=== PATIENT | female | born 1995 | race Caucasian/White ===

== ENCOUNTER 2019-05-05 03:06 | Emergency (ER) | payer MEDICAID ==
[~2019-05-05] VITALS: Ht 160 cm; Wt 72.0 kg
[2019-05-05] MEDS ORDERED: ACETAMINOPHEN 325MG TABLET PO ONE (04:15)
[2019-05-05 04:32] LABS: BASOPHILS % 0.5 % (0.0-2.0); EOSINOPHILS % 0.3 % (0.0-5.0); HEMATOCRIT. 34.2 % (36.0-48.0); HEMOGLOBIN. 11.5 g/dL (12.0-16.0); LYMPHOCYTES % 35.4 % (20.0-50.0); MEAN CORPUSCULAR VOLUME 88.8 fL (81.0-99.0); MEAN PLATELET VOLUME 10.6 fl (7.4-10.4); MONOCYTES % 6.6 % (2.0-8.0); NEUTROPHILS % 57.2 % (40.0-76.0); PLATELET 188 x1000/uL (130-400); RED BLOOD CELL COUNT 3.85 mill/uL (4.2-5.4); RED CELL DISTRIBUTION WIDTH 13.1 % (11.6-14.6)
[2019-05-05 04:38] LABS: CHLORIDE 108 mEq/L (98-107)
[2019-05-05 04:42] LABS: ETHANOL BLOOD < 10 mg/dL
[2019-05-05 04:49] LABS: B-HCG QUANTITATIVE < 1 mIU/mL (<3)
[2019-05-05 05:00] VITALS: BP 93/52
== END 2019-05-05 06:24 | disposition home or self-care (01) ==
LOC: ER 03:06
DX: S93.492A Sprain of other ligament of left ankle, initial encounter (principal); S00.81XA Abrasion of other part of head, initial encounter; R45.851 Suicidal ideations; F29 Unspecified psychosis not due to a substance or known physiological condition; J45.909 Unspecified asthma, uncomplicated; M21.371 Foot drop, right foot; Z88.6 Allergy status to analgesic agent; W01.0XXA Fall on same level from slipping, tripping and stumbling without subsequent striking against object, initial encounter; Y93.89 Activity, other specified; Y92.89 Other specified places as the place of occurrence of the external cause; Y99.8 Other external cause status
CPT/HCPCS: 36415; 73610; 76856; 80053; 80307; 80320; 80329; 84702; 85025; 99284; G0480